=== PATIENT | female | born 1945 | race Caucasian/White ===

== ENCOUNTER 2023-11-30 04:09 | Emergency (ER) | payer MEDICARE, BC, SELFPAY ==
[2023-11-30] VITALS (9 sets, daily range): BP systolic 98–135; BP diastolic 51–88
[2023-11-30 04:31] LABS: % Basophils 0.3 % (0-2); % Eosinophils 0.2 % (0-6); % Immature Granulocytes 0.3 % (0-0.5); % Lymphocytes 8.8 % (20.5-51.1); % Monocytes 9.3 % (1.7-9.3); % Neutrophils 81.1 % (42.2-75.2); Absolute Lymphocytes 0.9 10^3/uL (1.2-3.4); Absolute Monocytes 0.9 10^3/uL (0.1-0.6); Absolute Neutrophils 8.1 10^3/uL (1.4-6.5); Hematocrit 39.8 % (37.0-47.0); Hemoglobin 13.2 g/dL (12.0-16.0); Mean Corp Hgb Conc. 33.2 g/dL (33.0-37.0); Mean Corpuscular Hgb 30.3 pg (27.0-31.0); Mean Corpuscular Volume 91.5 fL (81.0-99.0); Mean Platelet Volume 11.1 fL (7.4-10.4); Nucleated Red Blood Cells % 0 %; Platelet Count 152 10^3/uL (130-400); Red Blood Cell Count 4.35 10^6/uL (4.20-5.40); Red Cell Dist. Width 13.3 % (11.5-14.5)
[2023-11-30 04:58] LABS: ALT (SGPT) 32 U/L (0-35); AST (SGOT) 84 U/L (14-36); Albumin 3.9 g/dl (3.5-5.0); Alkaline Phosphatase 70 U/L (38-126); Blood Urea Nitrogen 18 mg/dl (7-17); Calcium 9.9 mg/dl (8.4-10.2); Carbon Dioxide 27 mmol/L (22-30); Chloride 103 mmol/L (98-107); Estimated Creatinine Clearance 75 ml/min; Glucose 109 mg/dl (70-99); Potassium 3.6 mmol/L (3.5-5.1); Sodium 140 mmol/L (135-145); Total Bilirubin 1.2 mg/dl (0.2-1.3); Total Protein 6.5 g/dl (6.3-8.2); eGFR > 60.00
[2023-11-30] MEDS: NSS 500 IV ×2 (06:27→09:46)
[2023-11-30 06:55] LABS: Magnesium 1.9 mg/dl (1.6-2.3)
--- NOTE | 2023-11-30 07:02 | ED.GENMED ---
History of Present Illness
General
Chief Complaint: Change in Mental Status
Source: patient
Exam Limitations: none
Time Seen by Provider: 11/30/23 05:59
Nursing documentation reviewed up to this point in time: agreed with
Travel History
Have you had any contact with someone who has COVID-19?: No
Do you have any symptoms of coronavirus? Fever > 100 degrees, chills, cough, shortness of breath, sore throat, loss of taste or smell, muscle aches, or headache?: No
History of Present Illness
History of Present Illness:
Patient with history of 'forgetfulness' per family, presents to ED secondary to increased confusion noted by spouse over the past 3 days. Upon arrival, patient states that she is under stress at home, as her has heart disease and is
scheduled for surgery. However, she herself has no complaints. Denies headache. Denies sore throat. Denies coughing. Denies vomiting. Denies diarrhea. Denies recent illness. Denies fever or chills. Denies recent change in medications or
diet. Patient states that she has had small hard stool during bowel movements recently.
Past History
Past History
ED Past Medical History: Other
Social History
Tobacco: Non-smoker
Personal:
Living: with family
Employment: Retired
Review of Systems
Review of Systems
Allergies reviewed?: Yes
All Other Systems: ROS reviewed and negative except as documented in HPI and ROS
Constitutional: Reports no symptoms
EENT: Reports no symptoms
Respiratory: Reports no symptoms
Cardiac: Reports no symptoms
ABD/GI: Reports no symptoms
: Reports no symptoms
Musculoskeletal: Reports no symptoms
Skin: Reports no symptoms
Neurological: Reports no symptoms
Phy Exam
Physical Exam
Physical Exam:
Physical Exam
General: no apparent distress, not acutely ill. afebrile
Head: nc/at. eomi
Neck: supple. no meningeal signs. normal posterior pharynx
Heart: s1/s2 regular rate and rhythm, no murmur. equal radial pulses.
Lungs: no acute respiratory distress. clear bilaterally
Abdomen: normal bowel sounds. not tender.
Neuro: alert and oriented x2. no focal neurological deficits
Skin: no rash
Psychiatric: well kept. interactive and cooperative
Extremities: no edema. no calf tenderness
Course
Orders/Labs/Results
Orders:
Orders
11/30/23 04:22
CMP [Comprehensive Metabolic Panel] Urgent
Complete Blood Count/With Diff Urgent
Magnesium Urgent
Comment: ADD ON
11/30/23 06:22
Add On- LAB Urgent
Tests Added?: magnesium
Straight cath- Treatment ONCE
0.9% Sodium Chloride 500 ml [Nss] 500 ml IV BOLUS
11/30/23 08:46
Urinalysis Reflex To Culture Urgent
Date Specimen was Collected: 11/30/23
Time Specimen was Collected: 08:42
Urine Microscopic Reflex Cult Urgent
Urine Culture Urgent
OLIVIA Source: U
Specimen Description:
Date Specimen was Collected: 11/30/23
Time Specimen was Collected: 08:42
11/30/23 09:24
0.9% Sodium Chloride 500 ml [Nss] 500 ml IV BOLUS
11/30/23 09:34
Add On - Microbiology Urgent
Tests Added?: urine culture
11/30/23 09:38
0.9% Sodium Chloride 500 ml [Nss] 500 ml IV BOLUS
Abnormal Lab Results
11/30/23 11/30/23
04:22 08:46
MPV 11.1 H fL
(7.4-10.4)
Absolute Neuts (auto) 8.1 H 10^3/uL
(1.4-6.5)
Absolute Lymphs (auto) 0.9 L 10^3/uL
(1.2-3.4)
Absolute Monos (auto) 0.9 H 10^3/uL
(0.1-0.6)
Neutrophils % 81.1 H %
(42.2-75.2)
Lymphocytes % 8.8 L %
(20.5-51.1)
BUN 18 H mg/dl
(7-17)
Creatinine 0.4 L mg/dL
(0.6-1.0)
Glucose 109 H mg/dl
(70-99)
AST 84 H U/L
(14-36)
Urine Ketones 2+ A
(Negative)
Ur Occult Blood Reflex Trace A
(Negative)
Urine Bilirubin 1+ A
(Negative)
Urine Bacteria (Reflex) Few A
(Negative)
11/30/23 04:22
11/30/23 04:22
Vital Signs
Initial and Last Documented VS:
Initial Vital Signs
Temp Pulse Resp BP Pulse Ox
97.5 F 84 20 135/74 96
11/30/23 04:11 11/30/23 04:11 11/30/23 04:11 11/30/23 04:11 11/30/23 04:11
Last Documented Vital Signs
Temp Pulse Resp BP Pulse Ox
97.5 F 84 20 98/51 95
11/30/23 04:11 11/30/23 04:11 11/30/23 04:11 11/30/23 11:52 11/30/23 11:52
MDM/Problems Addressed
MDM/Problems Addressed:
Patient remains alert and awake, with stable vital signs during extended course of observation ED. Blood work, history, and urinalysis support potential mild dehydration, for mild confusion noted at home.
Discussed with patient's spouse via phone. Advised increased fluid administration at home, along with PCP follow-up as an outpatient.
*Critical Care Note
Total Time (30-74mins, 75-104mins- exclusive of procedures): Not Applicable
ED Attending Note
-
Portions of this chart may have been created with voice recognition software.� Occasional wrong word or��sound alike� substitutions may have occurred due to the inherent limitations of voice recognition software.
Discharge Plan
Departure
Patient Disposition: Home (Routine Discharge)
Date of Disposition: 11/30/23
Time of Disposition: 10:04
Patient with high blood pressure during this ER visit?: Yes
Discharge Problem:
Altered mental status, Dehydration
Instructions: Altered Mental Status (DC), Dehydration, Adult ED
Prescriptions:
No Action
cod liver oil 1 CAP capsule
1 cap PO DAILY
ascorbic acid (vitamin C) [Vitamin C] 500 MG tablet
500 mg PO DAILY
vitamin B complex 1 EACH tablet
1 ea PO DAILY
cholecalciferol (vitamin D3) 1,000 UNITS tablet
1,000 units PO DAILY
vitamin E (dl, acetate) 400 UNITS capsule
400 units PO DAILY
levofloxacin 500 MG tablet
500 mg PO DAILY Qty: 8 0RF
metronidazole 500 MG tablet
500 mg PO TID Qty: 24 0RF
pantoprazole 40 MG tablet,delayed release (DR/EC)
40 mg PO DAILY Qty: 30 0RF
Referrals:
PRIVATE,PHYSICIAN [Family Provider] -
Activity Restrictions/Additional Instructions:
As discussed, please follow-up with your primary care physician for reevaluation. In the meantime, recommend increasing fluid administration at home.
Interventions
Interventions:
*Risk Screen - Suicide Last Done: 11/30/23 04:11
*General Assessment Last Done: 11/30/23 04:11
*Neglect/Abuse Screening Last Done: 11/30/23 04:11
ED- Fall Risk Assessment Last Done: 11/30/23 11:52
*ED COVID-19 Vaccine History Last Done: 11/30/23 04:11
*Nursing Disposition Last Done: 11/30/23 11:52
ED- Neurological Assessment Last Done: 11/30/23 05:08
Discharge Date and Time
Discharge Date/Time: 11/30/23 11:53
Print Language: SLOVENIAN
[2023-11-30 09:13] LABS: Urine Albumin Trace (Neg - Trace); Urine Bilirubin 1+ (Negative); Urine Character Clear (Clear); Urine Color Yellow; Urine Glucose Negative (Negative); Urine Ketone 2+ (Negative); Urine Leukocyte Negative (Negative); Urine Nitrite Negative (Negative); Urine Occult Blood Trace (Negative); Urine Specific Gravity 1.025 (<1.030); Urine Urobilinogen Negative (Neg - 1+)
[2023-11-30 09:32] LABS: Urine Bacteria Few (Negative); Urine Red Blood Cell 0-2 /HPF (0-2); Urine White Cell None Seen /HPF (0-5)
--- NOTE | 2023-11-30 14:30 | PTCARENOTE ---
Patient left ed without her phone. Called to Won who has an appointment in the [facility] at 7 am on the 12/01 and informed him that he can pick phone up at security.
== END 2023-11-30 11:53 | disposition home or self-care (01) ==
LOC: EMR 04:09
PROVIDERS: Emergency Medicine; EMERGENCY PHYSICIAN Emergency Medicine
DX: E86.0 Dehydration (principal); R41.82 Altered mental status, unspecified; R03.0 Elevated blood-pressure reading, without diagnosis of hypertension; K57.92 Diverticulitis of intestine, part unspecified, without perforation or abscess without bleeding; Z88.1 Allergy status to other antibiotic agents
CPT/HCPCS: 99284; 96360; 96361 ×2; 51701; 80053; 81003; 81015; 83735; 85025; 87086

== ENCOUNTER 2023-12-07 10:01 | Emergency (ER) | payer MEDICARE, BC, SELFPAY ==
--- NOTE | 2023-12-07 10:10 | ED.GENMED ---
History of Present Illness
General
Chief Complaint: Urinary Symptoms
Source: patient and ambulance crew
Exam Limitations: none
Time Seen by Provider: 12/07/23 10:02
History of Present Illness
History of Present Illness:
See MDM
Past History
Past History
ED Past Medical History: GERD and Other
ED Past Surgical History: None
Social History
Tobacco: Non-smoker
Personal:
Living: with family
Employment: Retired
Phy Exam
Physical Exam
Physical Exam:
See MDM
Course
Orders/Labs/Results
Orders:
Orders
12/07/23 10:06
Straight cath- Treatment ONCE
12/07/23 10:21
Urinalysis Reflex To Culture Urgent
Date Specimen was Collected: 12/07/23
Time Specimen was Collected: 10:20
Urine Microscopic Reflex Cult Urgent
Urine Culture Urgent
OLIVIA Source: U
Specimen Description:
Date Specimen was Collected: 12/07/23
Time Specimen was Collected: 10:20
12/07/23 11:21
Fosfomycin [Monurol] 3 gm PO ONCE ONE
Abnormal Lab Results
12/07/23
10:21
Urine Ketones Trace A
(Negative)
Ur Occult Blood Reflex Trace A
(Negative)
Urine Bilirubin 1+ A
(Negative)
Urine Bacteria (Reflex) Many A
(Negative)
Vital Signs
Initial and Last Documented VS:
Initial Vital Signs
Temp Pulse Resp BP Pulse Ox
98.1 F 78 16 121/77 98
12/07/23 10:23 12/07/23 10:23 12/07/23 10:23 12/07/23 10:23 12/07/23 10:23
Last Documented Vital Signs
Temp Pulse Resp BP Pulse Ox
98.1 F 78 16 121/77 98
12/07/23 10:23 12/07/23 10:23 12/07/23 10:23 12/07/23 10:23 12/07/23 10:23
MDM/Problems Addressed
Differential Diagnosis Includes:
HPI and MDM Narrative:
78-year-old female presenting with blood-tinged urine. She noted earlier today when she was urinating. She has had prior UTIs. She states there is some burning with urination. Patient was recently in the ER last week for altered mental status.
At that time, she had blood work performed and urine which was negative for UTI. Patient denies vaginal bleeding
On exam, she is well-appearing and nontoxic. There is no abdominal or back pain noted.
Physical exam
General: Well appearing and non-toxic
HEENT: protecting airway
Neck: appears supple
CV: No evidence of cyanosis
Resp: No accessory muscle use
Abd: Non-distended. Soft and nontender
Extremities: No deformities
Neuro: alert
Psych: Normal affect
Skin: Intact
Problems Addressed including Acute and Chronic Conditions affecting care:
1. Hematuria
Acuity: acute
Prognosis: stable
Details: Will obtain urinalysis
Updates
10:45 AM patient now stating that the she is unsure if she has bleeding or not. She noted that there was red in the toilet bowl this morning. She is unsure if she used the bathroom overnight. She is unsure if the bleeding is even hers or not.
The nurse did a straight cath and indicated that there was no blood in the vagina or rectum
11:20 AM given the bacteriuria, will give dose of Monurol
Differential Diagnosis (but not limited to): UTI, bladder stone, vaginal bleeding
Testing considered: CT abdomen/pelvis
Drug therapy (if applicable): OTC meds, please see d/c instruction regarding Rx drugs
Amount and/or Complexity of Data Reviewed
Clinical info obtained from: Patient
External data reviewed: Recently seen in the emergency department with negative urine
Labs I independently reviewed (but not limited to): Bacteriuria
Radiology: N/A
Pulse Ox: not hypoxic
EKG independently reviewed: N/A
[employer] Set Up Operator: N/A
Critical Care: N/A
Risk of Complication:
Social Determinants of health: Good social support
Discussed with other providers: N/A
Escalation of Care includes Admit/Obs: After being observed in the Emergency Department, pt stable for discharge.
Occasional wrong word or 'sound a like' substitutions may have occurred due to the inherent limitations of voice recognition software. Read the chart carefully and recognize, using context, where substitutions have occurred.
*Critical Care Note
Total Time (30-74mins, 75-104mins- exclusive of procedures): Not Applicable
ED Attending Note
-
Portions of this chart may have been created with voice recognition software.� Occasional wrong word or��sound alike� substitutions may have occurred due to the inherent limitations of voice recognition software.
Discharge Plan
Departure
Patient Disposition: Home (Routine Discharge)
Date of Disposition: 12/07/23
Time of Disposition: 11:23
Patient with high blood pressure during this ER visit?: No
Discharge Problem:
Bacteriuria
Prescriptions:
No Action
cod liver oil 1 CAP capsule
1 cap PO DAILY
ascorbic acid (vitamin C) [Vitamin C] 500 MG tablet
500 mg PO DAILY
vitamin B complex 1 EACH tablet
1 ea PO DAILY
cholecalciferol (vitamin D3) 1,000 UNITS tablet
1,000 units PO DAILY
vitamin E (dl, acetate) 400 UNITS capsule
400 units PO DAILY
levofloxacin 500 MG tablet
500 mg PO DAILY Qty: 8 0RF
metronidazole 500 MG tablet
500 mg PO TID Qty: 24 0RF
pantoprazole 40 MG tablet,delayed release (DR/EC)
40 mg PO DAILY Qty: 30 0RF
Referrals:
Angie Franklin MD [Family Provider] -
Activity Restrictions/Additional Instructions:
Please return for any worsening symptoms.
You may return at any time if you have further concerns.
Please follow up with your doctor at the first available appointment, preferably this week.
Thank you for choosing [facility].
Interventions
Interventions:
*Risk Screen - Suicide Last Done: 12/07/23 10:23
*General Assessment Last Done: 12/07/23 10:23
*Neglect/Abuse Screening Last Done: 12/07/23 10:23
ED- Fall Risk Assessment Last Done: 12/07/23 10:23
*ED COVID-19 Vaccine History Last Done: 12/07/23 10:23
ED-Female Genitourinary Assessment Last Done: 12/07/23 10:23
Discharge Date and Time
Print Language: FRISIAN
[2023-12-07 10:23] VITALS: BP 121/77; BMI 24.8
[2023-12-07 10:52] LABS: Urine Albumin Negative (Neg - Trace); Urine Bilirubin 1+ (Negative); Urine Character Clear (Clear); Urine Color Yellow; Urine Glucose Negative (Negative); Urine Ketone Trace (Negative); Urine Leukocyte Negative (Negative); Urine Nitrite Negative (Negative); Urine Occult Blood Trace (Negative); Urine Specific Gravity 1.025 (<1.030); Urine Urobilinogen 1+ (Neg - 1+)
[2023-12-07 11:14] LABS: Urine Mucus Few
[2023-12-07 11:15] LABS: Urine Bacteria Many (Negative); Urine Hyaline Cast 0-2 /LPF (0-2); Urine Red Blood Cell 0-2 /HPF (0-2); Urine White Cell 0-2 /HPF (0-5)
[2023-12-07] MEDS: MONUROL 3 GM PO (11:31)
--- NOTE | 2023-12-07 12:14 | EDRN ---
Addendum entered by Eliza King RN 12/07/23 12:25:
pt started to vomited in triage. Dr xavier aware and gave verbal ordered for IV zofran 4mg , given in ct scan
Original Note:
pt brought in by medics from work for passing out three times and n/v/hypotensiv e
pt answering questions correctly but slow to answer.
pt sts does not have PMD.
pt has no history and is not on meds
pt is not allergic to any thing.
IV inserted 20g right wrist fluids open wide bp 81/59
rectal temp 95.8 warm blankets applied.
pt taken for ct scan of head.
== END 2023-12-07 12:29 | disposition home or self-care (01) ==
LOC: EMR 10:01
PROVIDERS: EMERGENCY PHYSICIAN Student in an Organized Health Care Education/Training Program; FAMILY PHYSICIAN Family Medicine
DX: R82.71 Bacteriuria (principal); K21.9 Gastro-esophageal reflux disease without esophagitis
CPT/HCPCS: 99282; 81003; 81015; 87077; 87086; 99283

== ENCOUNTER → 2024-01-27 13:18 | Outpatient (REF) | payer MEDICARE, BC, SELFPAY | LOC: RAD 13:18 | PROVIDERS: ATTENDING PHYSICIAN Family Medicine | DX: R41.82 Altered mental status, unspecified (principal) | CPT/HCPCS: 70450 ==